=== PATIENT | male | born 1950 | race Caucasian/White ===

== ENCOUNTER 2016-12-03 10:42 | Emergency (ER) | payer MEDICARE ==
[~2016-12-03] VITALS: Ht 157.5 cm; Wt 69.0 kg
[2016-12-03 10:47] VITALS: Ht 157.5 cm; Wt 69.0 kg
[2016-12-03] MEDS ORDERED: SOD CHLORIDE 0.9% 1,000 ML IV STA (11:22)
[2016-12-03] MEDS ORDERED: LORAZEPAM 2 MG INJ IV ONE (11:30)
[2016-12-03] MEDS ORDERED: FOLIC ACID 1 MG TAB PO ONE (11:30)
[2016-12-03] MEDS ORDERED: THIAMINE 100 MG TAB PO ONE (11:30)
[2016-12-03 11:46] LABS: ADD SCAN DIFF NO
[2016-12-03 11:48] LABS: BASOPHILS % 0.4 % (0.0-2.0); EOSINOPHILS # 0.2 10^3/ul (0.0-0.5); EOSINOPHILS % 1.9 % (0.0-7.0); HEMATOCRIT 40.6 % (42.0-52.0); HEMOGLOBIN 13.4 g/dl (14.0-18.0); LYMPHOCYTES # 1.9 10^3/ul (0.8-2.9); LYMPHOCYTES % 22.4 % (15.0-51.0); MEAN CORPUSCULAR HEMOGLOBIN 29.6 pg (29.0-33.0); MEAN CORPUSCULAR VOLUME 89.8 fl (82.0-101.0); MEAN PLATELET VOLUME 9.8 fl (7.4-10.4); MONOCYTE # 0.5 10^3/ul (0.3-0.9); NEUTROPHIL # 5.8 10^3/ul (1.6-7.5); NEUTROPHILS % 68.8 % (39.0-77.0); PLATELET COUNT 416 10^3/UL (140-415); RED BLOOD COUNT 4.52 10^6/ul (4.70-6.10); RED CELL DISTRIBUTION WIDTH 15.8 % (11.5-14.5); WHITE BLOOD COUNT 8.4 10^3/ul (4.8-10.8)
[2016-12-03 12:13] LABS: CREATININE 1.25 mg/dl (0.61-1.24)
--- NOTE | 2016-12-03 12:21 | RADRPT ---
PROCEDURE: CT Brain without contrast. CLINICAL INDICATION: Headache, history of alcohol abuse. TECHNIQUE: A CT of the brain was performed on a GE 64-slice CT scanner utilizing axial imaging fro m the skull base through the vertex without intravenous contrast. Multiplanar reformatted images wer e made. One or more the following does reduction techniques were utilized: Automated exposure contr ol, adjustment of the mA/ or kV according to patient's size, or use of iterative reconstruction tech nique. The CTDIvol is 45.0 mGy and the DLP is 720.2 mGycm. COMPARISON: None. FINDINGS: There is no intracranial hemorrhage, mass effect, or midline shift. No extra-axial fluid collection is seen. Mild to moderate atrophy is identified with compensatory ventricular and sulcal enlargeme nt, greater than expected for age. Minimal decreased attenuation is seen in the periventricular and deep white matter, compatible with microvascular ischemic disease. The lew white matter differenti ation is well preserved with no acute infarct detected. The osseous structures and visualized paran tsering sinuses are unremarkable. IMPRESSION: 1. No evidence of acute intracranial pathology. 2. Mild to moderate diffuse atrophy. 3. There is minimal microvascular ischemic disease in the periventricular and deep white matter. RPTAT: PP .Gertrudis Harrison MD, MD Date Time Electronically viewed and signed by .Gertrudis Harrison MD, on 12/03/2016 12:21 .H/
[2016-12-03] MEDS ORDERED: LISI10TA2 PO (12:36)
--- NOTE | 2016-12-03 12:38 | ERD ---
ER Documentation Chief Complaint Date/Time DATE: 12/03/16 TIME: 12:35 Chief Complaint SEND FOR EVAL, LAST DRINK 2 WEEKS AGO, INSOMNIA,POOR APETITE,FRECUENT FALL HPI This is a 66-year-old male who has a history of alcohol abuse who was sent by his primary care physician for further evaluation. His last drink was 3 weeks ago. He states that when he drinks he drinks every day but he has not had a drink for 3 weeks. He is feeling generally weak and has a mild headache but denies any falls or trauma. He denies any hematemesis or melena. The patient otherwise has no complaints. ROS All systems reviewed and are negative except as per history of present illness. PMhx/Soc Medical and Surgical Hx: pt denies Surgical Hx History of Surgery: No Anesthesia Reaction: No Hx Neurological Disorder: No Hx Respiratory Disorders: No Hx Cardiac Disorders: Yes (HTN) Hx Psychiatric Problems: No Hx Miscellaneous Medical Probl: No Hx Alcohol Use: Yes (quit 3 weeks ago) Hx Substance Use: No Hx Tobacco Use: No Smoking Status: Never smoker FmHx Family History: No diabetes Physical Exam Vitals Vital Signs Date Time Temp Pulse Resp B/P Pulse Ox O2 Delivery O2 Flow Rate FiO2 12/03/16 10:47 98.2 104 18 166/89 99 Physical Exam General: Well developed, well nourished, no acute distress Head: Normocephalic, atraumatic. Eyes: Pupils equally reactive, EOM intact ENT: Moist mucous membranes Neck: Supple, no lymphadenopathy Respiratory: Lungs clear bilaterally, no distress Cardiovascular: RRR, no murmurs, rubs, or gallops Abdominal: Soft, non-tender, non-distended, no peritoneal signs : Deferred MSK: No edema, no unilateral swelling, 5/5 strength Neurologic: Alert and oriented, moving all extremities, normal speech, no focal weakness, no cerebellar signs, slight tremor but no evidence of asterixis Skin: No rash Psych: Normal mood Result Diagram: 12/03/16 1130 12/03/16 1130 Results 24 hrs Laboratory Tests Test 12/03/16 11:30 White Blood Count 8.410^3/ul Red Blood Count 4.5210^6/ul Hemoglobin 13.4g/dl Hematocrit 40.6% Mean Corpuscular Volume 89.8fl Mean Corpuscular Hemoglobin 29.6pg Mean Corpuscular Hemoglobin Concent 33.0g/dl Red Cell Distribution Width 15.8% Platelet Count 40393^3/UL Mean Platelet Volume 9.8fl Neutrophils % 68.8% Lymphocytes % 22.4% Monocytes % 6.0% Eosinophils % 1.9% Basophils % 0.4% Nucleated Red Blood Cells % 0.0/100WBC Neutrophils # 5.810^3/ul Lymphocytes # 1.910^3/ul Monocytes # 0.510^3/ul Eosinophils # 0.210^3/ul Basophils # 0.010^3/ul Nucleated Red Blood Cells # 0.010^3/ul Sodium Level 139mmol/L Potassium Level 4.0mmol/L Chloride Level 106mmol/L Carbon Dioxide Level 20mmol/L Anion Gap 17 Blood Urea Nitrogen 15mg/dl Creatinine 1.25mg/dl Glucose Level 153mg/dl Calcium Level 10.0mg/dl Current Medications Medications (Trade) Dose Ordered Sig/Emma Route PRN Reason Start Time Stop Time Status Last Admin Dose Admin Sodium Chloride (NS) 1,000 ml @ 1,000 mls/hr Q1H STAT IV 12/03/16 11:22 12/03/16 12:21 DC 12/03/16 11:46 Thiamine HCl (Vitamin B1) 100 mg ONCE ONCE PO 12/03/16 11:30 12/03/16 11:31 DC Folic Acid (Folic Acid) 1 mg ONCE ONCE PO 12/03/16 11:30 12/03/16 11:31 DC Lorazepam (Ativan) 1 mg ONCE ONCE IV 12/03/16 11:30 12/03/16 11:31 DC 12/03/16 11:46 Procedures/MDM EKG, MONITORS, & DIAGNOSTIC IMAGING: CT brain: IMPRESSION: 1. No evidence of acute intracranial pathology. 2. Mild to moderate diffuse atrophy. 3. There is minimal microvascular ischemic disease in the periventricular and deep white matter. RPTAT: PP LAB INTERPRETATION: No leukocytosis, no electrolyte disturbances MEDICAL DECISION MAKING: The patient presents with signs and symptoms consistent with mild dehydration. Consider possible alcohol withdrawal however the patient's timing of last drink does not make sense for significant withdrawal syndrome. This is likely secondary to chronic alcohol abuse and possible vitamin deficiency. Patient does have a headache but no fall, given his alcohol abuse history he is at risk for subdural hemorrhage therefore CT brain will be obtained. ER COURSE: Patient given IV fluids, thiamine, folic acid, 1 mg of Ativan. The patient's laboratory testing and diagnostic imaging is unrevealing. The patient's symptoms have stabilized vital signs improved. The patient is safe for discharge. He was offered social insurance analyst resources but states that he goes to and has a sponsor that he is in contact with. He does not wish to have detox center referral at this time. Referral information provided. I kept the patient and/or family informed of laboratory and diagnostic imaging results throughout the emergency room course. DISPOSITION PLAN: We discussed follow up with the patient's primary care doctor within 24 to 48 hours as needed. We also discussed return to the emergency room for worsening symptoms or worsening condition. Outpatient referral: [None required] Discharge Medications: Risks of benzodiazepines outweigh the benefits, none given for discharge. Departure Diagnosis: Primary Impression: Alcohol abuse Additional Impression: Mild dehydration Condition: Stable Patient Instructions: Alcohol Abuse Referrals: [facility] Usted se nicholson hecho un examen mdico de control que le indica que no est en valeriano condicin que requiera tratamiento urgente en el Departamento de Emergencia. Un estudio ms profundo y el tratamiento de munoz condicin pueden esperar sin ningn riesgo hasta que usted sea atendida/o en el consultorio de munoz mdico o valeriano cl yesy. Es responsabilidad suya arreglar valeriano donovan para el seguimiento del sangeeta. MANEJO DE CONDICIONES NO URGENTES EN EL FUTURO 1) Si usted tiene un mdico de atencin primaria: Usted debera llamar a munoz mdico de atencin primaria antes de venir al departamento de emergencia. Despus de las horas de consultorio, munoz doctor o munoz asociado/a est disponible por telfono. El mdico o enfermero de marily en el servicio telefnico puede asesorarle por juan a medio para atender el problema, o sangeeta contrario se puede programar valeriano donovan. 2) Si usted no tiene un mdico de atencin primaria: Llame al mdico o clnica de referencia que aparece abajo renan las horas de consultorio para hacer valeriano donovan para que le vean. CLINICAS: [place] [address] [phone] [facility] [place] [address] [phone] [facility]. [place] [address] [phone] [facility]. [place] [address] [phone] [facility] [place] [address] [phone] [facility] [phone] [address] [facility] YOU HAVE RECEIVED A MEDICAL SCREENING EXAM AND THE RESULTS INDICATE THAT YOU DO NOT HAVE A CONDITION THAT REQUIRES URGENT TREATMENT IN THE EMERGENCY DEPARTMENT. FURTHER EVALUATION AND TREATMENT OF YOUR CONDITION CAN WAIT UNTIL YOU ARE SEEN IN YOUR DOCTORS OFFICE WITHIN THE NEXT 1-2 DAYS. IT IS YOUR RESPONSIBILITY TO MAKE AN APPOINTMENT FOR [facility]. IF YOU HAVE A PRIMARY DOCTOR --you should call your primary doctor and schedule an appointment IF YOU DO NOT HAVE A PRIMARY DOCTOR YOU CAN CALL OUR PHYSICIAN REFERRAL HOTLINE AT IF YOU CAN NOT AFFORD TO SEE A PHYSICIAN YOU CAN CHOSE FROM THE FOLLOWING [facility] CLINICS [facility] [phone] [address] [facility]. [facility] [phone] [facility]. [facility] [address] [facility] [facility] [address] [facility]. [facility] [address] [facility]. [facility] [address] [facility] YOU HAVE RECEIVED A MEDICAL SCREENING EXAM AND THE RESULTS INDICATE THAT YOU DO NOT HAVE A CONDITION THAT REQUIRES URGENT TREATMENT IN THE EMERGENCY DEPARTMENT. FURTHER EVALUATION AND TREATMENT OF YOUR CONDITION CAN WAIT UNTIL YOU ARE SEEN IN YOUR DOCTORS OFFICE WITHIN THE NEXT 1-2 DAYS. IT IS YOUR RESPONSIBILITY TO MAKE AN APPOINTMENT FOR FOLOW-UP CARE. IF YOU HAVE A PRIMARY DOCTOR --you should call your primary doctor and schedule and appointment IF YOU DO NOT HAVE A PRIMARY DOCTOR YOU CAN CALL OUR PHYSICIAN REFERRAL HOTLINE AT . IF YOU CAN NOT AFFORD TO SEE A PHYSICIAN YOU CAN CHOSE FROM THE FOLLOWING [facility]: [facility] [address] [place] [address] [facility] [address] [place] [address] [facility] [address] [place] [address] [facility] () Usted se nicholson hecho un examen mdico de control que le indica que no est en valeriano condicin que requiera tratamiento urgente en el Departamento de Emergencia. Un estudio ms profundo y el tratamiento de munoz condicin pueden esperar sin ningn riesgo hasta que usted sea atendida/o en el consultorio de munoz mdico o valeriano cl yesy. Es responsabilidad suya arreglar valeriano donovan para el seguimiento del sangeeta. MANEJO DE CONDICIONES NO URGENTES EN EL FUTURO 1) Si usted tiene un mdico de atencin primaria: Usted debera llamar a munoz mdico de atencin primaria antes de venir al departamento de emergencia. Despus de las horas de consultorio, munoz doctor o munoz asociado/a est disponible por telfono. El mdico o enfermero de marily en el servicio telefnico puede asesorarle por juan a medio para atender el problema, o sangeeta contrario se puede programar valeriano donovan. 2) Si usted no tiene un mdico de atencin primaria: Llame al mdico o condado institucions de referencia que aparece abajo renan las horas de consultorio para hacer valeriano donovan para que le vean. SI USTED NO PUEDE PAGAR PARA NIRMAL UN MEDICO puede ir a: [facility] [address] [place] [address] [facility] [address] [place] [address] [facility] [address] [place] [address] [facility] [address] [place], [place] [id number] Additional Instructions: Call your primary care doctor TOMORROW for an appointment during the next 1 WEEK.Tell the secretary administrative assistant that you were referred from this facility.See the doctor sooner or return here if your condition worsens before your appointment time. Llame al doctor nombrado abajo (Referral Sources) MAANA y eulalia valeriano DONOVAN PARA DENTRO DE VALERIANO SEMANA. Dgale a la secretaria que nosotros le instruimos hacer esta donovan.Avise o llame si munoz condicin se empeora antes de la donovan. CAMILLE JULIAN MD Dec 03, 2016 12:38
[2016-12-03 12:41] VITALS: BP 152/80; PULSE 61; RESP 20
== END 2016-12-03 13:08 | disposition home or self-care (01) ==
LOC: E/R 10:42
DX: F10.10 Alcohol abuse, uncomplicated (principal); R40.2252 Coma scale, best verbal response, oriented, at arrival to emergency department; E86.0 Dehydration; I10 Essential (primary) hypertension; R51 Headache; R40.2142 Coma scale, eyes open, spontaneous, at arrival to emergency department; R40.2362 Coma scale, best motor response, obeys commands, at arrival to emergency department
CPT/HCPCS: 36415; 70450; 80048; 85025; 96374; 99285; J2060; J7030

== ENCOUNTER 2018-04-09 12:56 | Day surgery (SDC) | END 2018-04-09 15:24 | disposition home or self-care (01) ==